=== PATIENT | female | born 1980 | race Caucasian/White ===

== ENCOUNTER 2016-07-06 12:24 | Emergency (ER) | payer MEDICAID ==
[~2016-07-06] VITALS: Ht 170.2 cm; Wt 86.2 kg
[2016-07-06 13:20] VITALS: BP 141/82
--- NOTE | 2016-07-06 16:34 | NUR ---
Patient ambulated to bed 04.
--- NOTE | 2016-07-06 16:35 | NUR ---
36/F BIB FAMILY C/O DIZZINESS X 1 DAY. PT STATED HAS NAUSEA BUT DENIES V/D; SKIN IS PINK/WARM/DRY; AAOX4 WITH EVEN AND STEADY GAIT; LUNGS CLEAR BL; HR EVEN AND REGULAR; PATIENT STATES PAIN OF 0/10 AT THIS TIME; VSS; PATIENT POSITIONED FOR COMFORT; HOB ELEVATED; BEDRAILS UP X2; BED DOWN. ER MD MADE AWARE OF PT STATUS.
--- NOTE | 2016-07-06 17:03 | NUR ---
Dr. Vallejo evaluating patient at bedside.
[2016-07-06] MEDS ORDERED: METOCLOPRAMIDE 10 MG/2 ML INJ VIAL IVP ONE (17:10)
[2016-07-06] MEDS ORDERED: NACL 0.9% 1,000 ML IV ONE (17:10)
[2016-07-06 19:02] VITALS: BP 121/78
== END 2016-07-06 19:02 | disposition home or self-care (01) ==
LOC: MED 12:24
DX: R51 Headache (principal); R42 Dizziness and giddiness
CPT/HCPCS: 36415; 80053; 81001; 81025; 84484; 85025; 87086; 93005; 96361; 96374; 99284; J2765; J7030